=== PATIENT | male | born 1970 | race African-American/Black ===

== ENCOUNTER 2019-12-10 14:17 | Emergency (ER) | payer MEDICAID ==
[~2019-12-10] VITALS: Ht 188 cm; Wt 95.0 kg
[2019-12-10] MEDS ORDERED: SULFAMETHOXAZOLE/TRIMETHOPRIM 800/160MG TABLET PO ONE (16:00)
[2019-12-10] MEDS ORDERED: LIDOCAINE HCL 1% 20ML VIAL (Pyxis) INJ INFIL ONE (16:00)
[2019-12-10] MEDS ORDERED: CEFTRIAXONE SODIUM 1 G/VIAL IM ONE (16:00)
[2019-12-10] MEDS ORDERED: IBUPROFEN 600MG TABLET PO ONE (16:00)
[2019-12-10 17:38] VITALS: BP 139/92
== END 2019-12-10 17:40 | disposition home or self-care (01) ==
LOC: ER 14:17
DX: L03.116 Cellulitis of left lower limb (principal); L03.115 Cellulitis of right lower limb; R03.0 Elevated blood-pressure reading, without diagnosis of hypertension
CPT/HCPCS: 93970; 96372; 99284; J0696; J3490